=== PATIENT | female | born 1990 | race Two or more races ===

== ENCOUNTER 2017-03-19 14:38 | Observation (INO) | payer SELFPAY | END 2017-03-19 18:15 | disposition home or self-care (01) | LOC: 3 SO LND 14:38 | PROVIDERS: ADMIT Obstetrics & Gynecology; ATTEND Obstetrics & Gynecology | DX: O62.9 Abnormality of forces of labor, unspecified (principal); Z3A.00 Weeks of gestation of pregnancy not specified | CPT/HCPCS: G0378; G0379 ==

== ENCOUNTER 2019-08-14 09:55 | Emergency (ER) | payer MEDICAID, OTHER ==
[~2019-08-14] VITALS: Ht 170.2 cm; Wt 118.4 kg
[~2019-08-14 09:55] MED LIST: IBUP-1060 PO
[2019-08-14 10:39] LABS: BACTERIA,URINE 0 /HPF (0-FEW); CLARITY,URINE BLOODY; COLOR,URINE RED; RBC,URINE TNTC /HPF (0-2); SQUAMOUS EPITHELIAL CELL,UR FEW /LPF; WBC,URINE 0 /HPF (0-4)
--- NOTE | 2019-08-14 10:49 | PHYS DOC ---
Past Medical History Past Medical History: No Pertinent History Past Surgical History: Cholecystectomy Alcohol Use: None Drug Use: None Adult General Chief Complaint Chief Complaint: VAGINAL BLEEDING HPI HPI Patient is a 29 year old Female who presents with went to the [facility] and they told her she was . Patient is unsure having weeks she is. Her last visit. Was June 16, 2019. Patient states that she is due March 20, 2020. Patient states she actually has a doctor's appointment to see her OB tomorrow. Patient states last night she began having vaginal bleeding that she states is as heavy as a period. States she has gone through 2 menstrual pads since last night. Patient states she's had small clots also. Patient denies any pain, dysuria, abnormal vaginal discharge. Patient states she has no concerns for sexually transmitted diseases. Patient has been twice and has one living child. Review of Systems Review of Systems : Vaginal bleeding. Denies dysuria or hematuria [] All other systems were reviewed and found to be within normal limits, except as documented in this note. Allergies Allergies Allergies Coded Allergies Type Severity Reaction Last Updated Verified No Known Drug Allergies 03/25/17 No Physical Exam Physical Exam Constitutional: Well developed, well nourished, no acute distress, non-toxic appearance. [] Eyes: PERRLA, EOMI, conjunctiva normal, no discharge. [] Cardiovascular:Heart rate regular rhythm, no murmur [] Lungs & Thorax: Bilateral breath sounds clear to auscultation [] Abdomen: Vaginal bleeding. Bowel sounds normal, soft, no tenderness, no masses, no pulsatile masses. [] Skin: Warm, dry, no erythema, no rash. [] Back: No tenderness, no CVA tenderness. [] Extremities: No tenderness, no cyanosis, no clubbing, ROM intact, no edema. [] Neurologic: Alert and oriented X 3, normal motor function, normal sensory function, no focal deficits noted. [] Psychologic: Affect normal, judgement normal, mood normal. [] Current Patient Data Vital Signs Vital Signs Date Time Temp Pulse Resp B/P (MAP) Pulse Ox O2 Delivery O2 Flow Rate FiO2 08/14/19 10:06 98.3 81 17 151/66 (94) 99 Room Air 98.3 Lab Values Laboratory Tests Test 08/14/19 10:03 08/14/19 10:20 Urine Collection Type Unknown Urine Color Red Urine Clarity Bloody Urine pH Urine Specific [place] Urine Protein mg/dL (NEG-TRACE) Urine Glucose (UA) mg/dL (NEG) Urine Ketones (Stick) mg/dL (NEG) Urine Blood (NEG) Urine Nitrite (NEG) Urine Bilirubin (NEG) Urine Urobilinogen Dipstick mg/dL (0.2 mg/dL) Urine Leukocyte Esterase (NEG) Urine RBC Tntc /HPF (0-2) Urine WBC 0 /HPF (0-4) Urine Squamous Epithelial Cells Few /LPF Urine Bacteria 0 /HPF (0-FEW) White Blood Count 8.7 x10^3/uL (4.0-11.0) Red Blood Count 4.72 x10^6/uL (3.50-5.40) Hemoglobin 12.9 g/dL (12.0-15.5) Hematocrit 38.5 % (36.0-47.0) Mean Corpuscular Volume 82 fL (79-100) Mean Corpuscular Hemoglobin 27 pg (25-35) Mean Corpuscular Hemoglobin Concent 33 g/dL (31-37) Red Cell Distribution Width 14.5 % (11.5-14.5) Platelet Count 215 x10^3/uL (140-400) Neutrophils (%) (Auto) 68 % (31-73) Lymphocytes (%) (Auto) 25 % (24-48) Monocytes (%) (Auto) 5 % (0-9) Eosinophils (%) (Auto) 1 % (0-3) Basophils (%) (Auto) 1 % (0-3) Neutrophils # (Auto) 5.9 x10^3/uL (1.8-7.7) Lymphocytes # (Auto) 2.2 x10^3/uL (1.0-4.8) Monocytes # (Auto) 0.4 x10^3/uL (0.0-1.1) Eosinophils # (Auto) 0.1 x10^3/uL (0.0-0.7) Basophils # (Auto) 0.1 x10^3/uL (0.0-0.2) Maternal Serum HCG Beta Subunit 6533 mIU/mL (0-5) H Sodium Level 137 mmol/L (136-145) Potassium Level 4.2 mmol/L (3.5-5.1) Chloride Level 101 mmol/L (98-107) Carbon Dioxide Level 26 mmol/L (21-32) Anion Gap 10 (6-14) Blood Urea Nitrogen 10 mg/dL (7-20) Creatinine 0.7 mg/dL (0.6-1.0) Estimated GFR (Cockcroft-Gault) 98.3 BUN/Creatinine Ratio 14 (6-20) Glucose Level 95 mg/dL (70-99) Calcium Level 8.6 mg/dL (8.5-10.1) Total Bilirubin 0.4 mg/dL (0.2-1.0) Aspartate Amino Transferase (AST) 21 U/L (15-37) Alanine Aminotransferase (ALT) 15 U/L (14-59) Alkaline Phosphatase 85 U/L (46-116) Total Protein 8.1 g/dL (6.4-8.2) Albumin 3.6 g/dL (3.4-5.0) Albumin/Globulin Ratio 0.8 (1.0-1.7) L Laboratory Tests 08/14/19 10:20 Laboratory Tests 08/14/19 10:20 Microbiology 08/14/19 Wet Prep - Final, Complete EKG EKG [] Radiology/Procedures Radiology/Procedures [] Impressions: [facility] [id number] [facility] [place], [place] [id number] IMAGING REPORT Signed PATIENT: [place] ACCOUNT: [id number] : 1990 LOCATION: ER AGE: 29 SEX: F EXAM STATUS: REG ER ORD. PHYSICIAN: ROSALINDA CHRIS APRN REASON: VAGINAL BLEEDING PROCEDURE: OB <14 WKS W/TV OB ultrasound less than 14 weeks to include transabdominal and transvaginal imaging 08/14/2019 CLINICAL HISTORY: First trimester with vaginal bleeding. TECHNIQUE: Using the distended urinary bladder as a sonographic window, a real-time ultrasound examination of the pelvis was performed. Additionally in an attempt to better evaluate the uterus and adnexa, a transvaginal ultrasound study was performed. Multiple images were obtained. FINDINGS: A gestational sac is seen within the lower uterine segment/cervix. A yolk sac and embryonic pole are seen within this gestational sac. The CRL of this embryonic pole measures 5.6 mm. This corresponds to an estimated gestational age by ultrasound of 6 weeks 2 days plus or minus a standard deviation of 5 days. No embryonic cardiac activity is seen. This finding is consistent with embryonic demise. The uterus is otherwise within normal limits. Both ovaries are within normal limits in size. The right ovary measures 2.2 x 2.1 x 1.8 cm in size. The left ovary measures 2.1 x 1.4 x 1.2 cm in size. A small amount of free fluid is seen within the pelvis. IMPRESSION: Findings consistent with embryonic demise. Electronically signed by: Tamir Quintero MD (08/14/2019 12:15 PM) [facility] DICTATED and SIGNED BY: TAMIR QUINTERO MD DATE: 08/14/19 1210 Course & Med Decision Making Course & Med Decision Making Abdomen soft and nontender. Alert and oriented. Speaks in full senses. Skin pink warm and dry. Vital Signs within normal limits. Ambulatory with a steady gait. Afebrile. During examination the cervix looks to be open but it is hard to see because of the vaginal bleeding. A medium sized clot is removed. No tissues or sac are seen in the vaginal canal. She states she has no concerns for sexually transmitted diseases and denies any prophylactic treatment this time. Wet prep normal. Urinalysis had too much blood. Blood work unremarkable. US shows: IMPRESSION: Findings consistent with embryonic demise. I have spoken to Dr Bermudez. He states he will take her for a D & C. He states that she doesn't need to be admitted and he can take her from the emergency room. Patient states she ate last day. Pelvic Exam: Elderly Companion present Abdomen: Nontender External Genitalia: Normal Skin Speculum: Normal vaginal mucosa, Bleeding cervical discharge Bimanual: No adnexal masses or tenderness, No CMT Dragon Disclaimer Dragon Disclaimer This electronic medical record was generated, in whole or in part, using a voice recognition dictation system. Departure Departure Impression: Primary Impression: Vaginal bleeding affecting early Additional Impression: Miscarriage Disposition: 05 TRANSFER OTHER (SURGERY TAKING PATIENT FOR D&C) Condition: STABLE Referrals: NO PCP (PCP) Problem Qualifiers ROSALINDA CHRIS ROTARY ENGRAVER Aug 14, 2019 10:49
[2019-08-14 10:53] LABS: BASO # 0.1 x10^3/uL (0.0-0.2); BASO % 1 % (0-3); EOS # 0.1 x10^3/uL (0.0-0.7); EOS % 1 % (0-3); HEMATOCRIT 38.5 % (36.0-47.0); HEMOGLOBIN 12.9 g/dL (12.0-15.5); LYMPH # 2.2 x10^3/uL (1.0-4.8); LYMPH % 25 % (24-48); MEAN CORPUSCULAR HEMOGLOBIN 27 pg (25-35); MEAN CORPUSCULAR HGB CONC 33 g/dL (31-37); MEAN CORPUSCULAR VOLUME 82 fL (79-100); MONO # 0.4 x10^3/uL (0.0-1.1); MONO % 5 % (0-9); NEUT # 5.9 x10^3/uL (1.8-7.7); NEUT % 68 % (31-73); PLATELET COUNT 215 x10^3/uL (140-400); RED BLOOD COUNT 4.72 x10^6/uL (3.50-5.40); RED CELL DISTRIBUTION WIDTH 14.5 % (11.5-14.5); WHITE BLOOD COUNT 8.7 x10^3/uL (4.0-11.0)
[2019-08-14 11:03] LABS: CALCIUM 8.6 mg/dL (8.5-10.1); CREATININE 0.7 mg/dL (0.6-1.0); GFR 98.3; POTASSIUM 4.2 mmol/L (3.5-5.1)
[2019-08-14 11:08] LABS: ALBUMIN 3.6 g/dL (3.4-5.0); ALBUMIN/GLOBULIN RATIO 0.8 (1.0-1.7); TOTAL BILIRUBIN 0.4 mg/dL (0.2-1.0); TOTAL PROTEIN 8.1 g/dL (6.4-8.2)
--- NOTE | 2019-08-14 12:19 | RAD ---
OB ultrasound less than 14 weeks to include transabdominal and transvaginal imaging 08/14/2019 CLINICAL HISTORY: First trimester with vaginal bleeding. TECHNIQUE: Using the distended urinary bladder as a sonographic window, a real-time ultrasound examination of the pelvis was performed. Additionally in an attempt to better evaluate the uterus and adnexa, a transvaginal ultrasound study was performed. Multiple images were obtained. FINDINGS: A gestational sac is seen within the lower uterine segment/cervix. A yolk sac and embryonic pole are seen within this gestational sac. The CRL of this embryonic pole measures 5.6 mm. This corresponds to an estimated gestational age by ultrasound of 6 weeks 2 days plus or minus a standard deviation of 5 days. No embryonic cardiac activity is seen. This finding is consistent with embryonic demise. The uterus is otherwise within normal limits. Both ovaries are within normal limits in size. The right ovary measures 2.2 x 2.1 x 1.8 cm in size. The left ovary measures 2.1 x 1.4 x 1.2 cm in size. A small amount of free fluid is seen within the pelvis. IMPRESSION: Findings consistent with embryonic demise. Electronically signed by: Tamir Quintero MD (08/14/2019 12:15 PM) [facility]
[2019-08-14] MEDS ORDERED: PROPOFOL 20 ML IV ONE (13:13)
[2019-08-14] MEDS ORDERED: fentaNYL PF VIAL 100 MCG/2 ML VIAL ONE (13:13)
[2019-08-14] MEDS ORDERED: KETOROLAC 30 MG/ML VIAL. ONE (13:13)
[2019-08-14] MEDS ORDERED: LIDOCAINE 2% PF 5 ML VIAL. ONE (13:13)
[2019-08-14] MEDS ORDERED: ONDANSETRON PF 4 MG/2 ML VIAL. ONE (13:13)
[2019-08-14] MEDS ORDERED: SEVOFLURANE 31 TO 60 MINUTES. IH ONE (13:13)
[2019-08-14] MEDS ORDERED: DEXAMETHASONE SOD PHOS 4 MG/ML VIAL ONE (13:13)
[2019-08-14] MEDS ORDERED: OXYTOCIN 10 UNIT/ML VIAL. ONE (13:16)
[2019-08-14] MEDS ORDERED: IV RINGERS,LACTATED 1000ML 1,000 ML IV SCH (13:38)
[2019-08-14] MEDS ORDERED: miSOPROStol 200 MCG TABLET ONE (13:41)
[2019-08-14] MEDS ORDERED: ONDANSETRON PF 4 MG/2 ML VIAL. IV PRN (13:45)
[2019-08-14] MEDS ORDERED: MORPHINE SULFATE 2 MG/ML VIAL. IV PRN (13:45)
[2019-08-14] MEDS ORDERED: HYDROmorphone 2 MG/ML VIAL IV PRN (13:45)
[2019-08-14] MEDS ORDERED: PROCHLORPERAZINE 10 MG/2 ML VIAL. IV PRN (13:45)
[2019-08-14] MEDS ORDERED: fentaNYL PF VIAL 100 MCG/2 ML VIAL IV PRN ×2 (13:45)
--- NOTE | 2019-08-14 14:48 | PDOC ---
BRIEF OPERATIVE NOTE Pre-Op Diagnosis Incomplete AB Post-Op Diagnosis Same Procedure Performed Suction C and C Surgeon Aidan Anesthesia Type: General Blood Loss 25cc Specimens Obtained POC Complications None PERI TALBOT MD Aug 14, 2019 14:48
[2019-08-14] MEDS ORDERED: NAPR-514 PO (15:24)
[2019-08-14] MEDS ORDERED: HYDR-3164 PO (15:24)
[2019-08-14] MEDS ORDERED: DOXY100C2 PO (15:33)
[2019-08-14] MEDS ORDERED: METH0.2T36 PO (15:33)
[2019-08-14 15:40] VITALS: BP 111/62
[2019-08-15 18:09] LABS: GC PROBE Negative (Negative)
--- NOTE | 2019-08-17 15:07 | PATHOLOGY ---
[facility] Accession Number: [id number] . 01 Material submitted: . product of conception - PRODUCTS OF CONCEPTION . 01 Clinical history: . None provided . 02 Diagnosis: Uterine contents, suction D and C: - Products of conception, comprised of immature chorionic villi containing nucleated red blood cells, segments of decidual tissue showing focal hemorrhage, necrosis, and acute inflammation, and segments of hypersecretory endometrium. (JPM/db; 08/17/2019) LBQ 08/17/2019 1256 Local . 02 Electronically signed: . Tejas Estrella MD, Pathologist NPI- [id number] . 01 Gross description: . Received in formalin labeled "Alannah Olivares, products of conception," is a 6.4 x 5.2 x 1.6 cm aggregate of arauz villiform tissue and arauz-brown to hemorrhagic soft tissue fragments. tissue is not identified grossly. Vesicular structures are not identified grossly. Boxing Promoter tissue is submitted in cassettes A1 through A3. (DAC; 08/16/2019) XDC/XDC 08/16/2019 0741 Local . 02 Pathologist provided ICD-10: Z03.89 . 02 CPT . 481800 Specimen Comment: A courtesy copy of this report has been sent to [phone], [phone] Specimen Comment: [id number] Specimen Comment: Report sent to / DR CHRIS Performed at: 01 [facility] [address], [place] [id number] MD Jaime Hart MD Phone: [phone] Performed at: 02 [facility] [address] [place], [place] [id number] MD Tejas Estrella MD Phone: [phone]
== END 2019-08-14 13:43 | disposition home or self-care (01) ==
LOC: ER 09:55
DX: O03.9 Complete or unspecified spontaneous abortion without complication (principal); Z90.49 Acquired absence of other specified parts of digestive tract
CPT/HCPCS: 36415; 59812; 76801; 76817; 80053; 81001; 84702; 85025; 86850; 86900; 86901; 87491; 87591; 88305; 99285; A7015; J1100; J1885; J2001; J2405; J2590; J2704; J7120; Q0111; J3010

== ENCOUNTER → 2020-03-16 | Outpatient (CLI) | payer MEDICAID ==
[~2020-03-16] MED LIST changes: +DOXY100C2 PO; +HYDR-3164 PO; +METH0.2T36 PO; +NAPR-514 PO
--- NOTE | 2020-03-16 17:13 | RAD ---
OB ultrasound greater than 14 weeks 03/16/2020 Clinical History: Second trimester . Uterine size date discrepancy. Technique: A real-time ultrasound examination of the gravid uterus was performed. Multiple images were obtained. Findings: There is a single living IUP. The fetus is in a variable position. cardiac and somatic activity is seen. The heart rate is 140 beats per minutes. The maternal cervix is closed. It measures 5.17 cm in length. The placenta is in a posterior position. No abnormality is seen. The amniotic fluid volume is within normal limits. Neither maternal ovary is visualized. The following measurements were obtained: BPD 5.09cm 21 weeks 3 days HC 18.77 cm 21weeks 1 days AC 16.39 cm 21weeks 3 days FL 3.95 cm 22 weeks 5 days The estimated gestational age by ultrasound is 21 weeks 5 days plus or minus a standard deviation of 10 days. The estimated date of delivery by ultrasound is 07/22/2020. No abnormality is seen. Specifically the stomach, bladder, kidneys, 3 vessel cord and cord insertion, cerebellum, nose/mouth, spine and extremities are well-visualized and within normal limits. The four-chamber heart is not well evaluated due to position. Impression: Single living IUP with an estimated gestational age by ultrasound of 21 weeks5 days +/- a standard deviation of 10 days. The estimated date of delivery by ultrasound is07/22/2020. Electronically signed by: Tamir Quintero MD (03/16/2020 5:10 PM) [id number]
== END ==
LOC: US 15:15
PROVIDERS: ATTEND Obstetrics & Gynecology
DX: O26.842 Uterine size-date discrepancy, second trimester (principal); Z3A.21 21 weeks gestation of pregnancy
CPT/HCPCS: 76805

== ENCOUNTER → 2020-05-07 | Outpatient (CLI) | payer MEDICAID ==
[2020-05-07 12:09] LABS: BASO % 0 % (0-3); EOS # 0.1 x10^3/uL (0.0-0.7); EOS % 1 % (0-3); HEMATOCRIT 32.7 % (36.0-47.0); HEMOGLOBIN 10.9 g/dL (12.0-15.5); LYMPH # 1.2 x10^3/uL (1.0-4.8); LYMPH % 16 % (24-48); MEAN CORPUSCULAR HEMOGLOBIN 29 pg (25-35); MEAN CORPUSCULAR HGB CONC 33 g/dL (31-37); MEAN CORPUSCULAR VOLUME 87 fL (79-100); MONO # 0.3 x10^3/uL (0.0-1.1); MONO % 4 % (0-9); NEUT # 5.7 x10^3/uL (1.8-7.7); NEUT % 79 % (31-73); PLATELET COUNT 249 x10^3/uL (140-400); RED BLOOD COUNT 3.75 x10^6/uL (3.50-5.40); RED CELL DISTRIBUTION WIDTH 14.2 % (11.5-14.5); WHITE BLOOD COUNT 7.2 x10^3/uL (4.0-11.0)
== END | disposition home or self-care (01) ==
LOC: LAB 10:49
PROVIDERS: ATTEND Obstetrics & Gynecology
DX: O09.93 Supervision of high risk pregnancy, unspecified, third trimester (principal); Z3A.29 29 weeks gestation of pregnancy
CPT/HCPCS: 36415; 82950; 85025